=== PATIENT | female | born 1965 | race Hispanic/Latino ===

== ENCOUNTER 2021-10-15 10:11 | Outpatient (CLI) | payer OTHER ==
[2021-10-15 23:28] LABS: SARS-CoV-2 PCR by NAA Not Detected (NotDetected)
== END 2021-10-15 10:12 | disposition home or self-care (01) ==
LOC: CSHLAB 10:11
PROVIDERS: ATTEND Internal Medicine Gastroenterology
DX: Z20.822 Contact with and (suspected) exposure to COVID-19 (principal)
CPT/HCPCS: U0003; U0005

== ENCOUNTER 2021-10-20 06:57 | Day surgery (SDC) | payer OTHER ==
[2021-10-16 14:47] VITALS: BMI 24.7
[2021-10-20] MEDS ORDERED: Lidocaine 1% MPF 2 ML VIAL ONE (08:01)
[2021-10-20] MEDS ORDERED: PROPOFOL 20 ML ONE ×2 (08:48)
[2021-10-20] MEDS ORDERED: Lidocaine 1% PF 5 ML VIAL ONE (08:48)
[2021-10-20] MEDS ORDERED: PHENYLEPHRINE-NS 100 MCG/ML 10 ML SYRINGE ONE (09:15)
== END 2021-10-20 09:45 | disposition home or self-care (01) ==
LOC: CSHSDC 06:57
PROVIDERS: ATTEND Internal Medicine Gastroenterology
PROC: 0DJD8ZZ Inspection of Lower Intestinal Tract, Via Natural or Artificial Opening Endoscopic (ICD-10-PCS; principal; 2021-10-20)
DX: K57.30 Diverticulosis of large intestine without perforation or abscess without bleeding (principal); K64.9 Unspecified hemorrhoids; R10.32 Left lower quadrant pain; Z86.010 Personal history of colon polyps; K59.00 Constipation, unspecified; I10 Essential (primary) hypertension; K21.9 Gastro-esophageal reflux disease without esophagitis; Z88.6 Allergy status to analgesic agent
CPT/HCPCS: J2704

== ENCOUNTER 2021-11-20 15:40 | Outpatient (CLI) | payer OTHER | END 2021-11-20 15:41 | disposition home or self-care (01) | LOC: CSHMAMMO 15:40 | PROVIDERS: ATTEND Family Medicine | DX: Z12.31 Encounter for screening mammogram for malignant neoplasm of breast (principal) | CPT/HCPCS: 77063; 77067 ==

== ENCOUNTER 2024-12-26 15:14 | Outpatient (CLI) | payer BC, OTHER, SELFPAY | END 2024-12-26 15:15 | disposition home or self-care (01) | LOC: CSHMRI 15:14 | PROVIDERS: ATTEND Family Medicine | DX: H53.8 Other visual disturbances (principal); R51.9 Headache, unspecified; M54.2 Cervicalgia; M41.9 Scoliosis, unspecified; M47.812 Spondylosis without myelopathy or radiculopathy, cervical region | CPT/HCPCS: 70551; 72040; 72081 ==